=== PATIENT | female | born 1980 | race Two or more races ===

== ENCOUNTER 2019-09-01 21:43 | Inpatient (IN) | payer MEDICAID ==
[~2019-09-01] VITALS: Ht 170.2 cm; Wt 167.2 kg
--- NOTE | 2019-09-01 21:45 | NUR ---
DR DALLAS AND DR WELLS AND DR BOWLING ALL AT BS UPON PT ARRIVAL. NOW SURGICAL TEAM HERE
[2019-09-01] MEDS ORDERED: morphine 2 MG/ML inj. syringe IV PRN ×2 (21:50)
[2019-09-01] MEDS ORDERED: ondansetron/PF 4mg/2ml inj IV PRN (21:50)
[2019-09-01] MEDS ORDERED: NO HOME MEDS (21:54)
[2019-09-01] MEDS ORDERED: propofol inj 20 ML IV ONE (21:59)
--- NOTE | 2019-09-01 22:00 | NUR ---
SURGERY HAS JUST LEFT WITH THE PATIENT
[2019-09-01] MEDS ORDERED: midazolam 2 mg/2 ml injection ONE (22:09)
[2019-09-01] MEDS ORDERED: fentaNYL/PF 50MCG/1 ML 2ML syringe ONE ×2 (22:09→23:22)
[2019-09-01] MEDS ORDERED: ceFAZolin 1000mg inj ONE ×3 (22:45)
[2019-09-01] MEDS ORDERED: rocuronium 10mg/ml inj IV ONE (23:18)
[2019-09-01] MEDS ORDERED: succinylcholine 20mg/ml inj IV ONE (23:18)
[2019-09-01] MEDS ORDERED: dexamethasone sod phosphate 4mg/ml inj. ONE (23:19)
[2019-09-01 23:45] VITALS: BP_SYST 120; BP_SYST 129; BP_DIAS 72; BP_DIAS 87
--- NOTE | 2019-09-01 23:45 | NUR ---
Received from OR via , accompanied by Anesthesiologist DR BUCK and report given by Anesthesiolgist. PT ARRIVED IN ICU INTUBATED,22 TEETH, NOT MOVING EXT, SCD'S, PIV 20G RIGHT FA WITH LR 100ML/HR, SKIN WARM, PEDAL PULSES +2, NO C/O PAIN, JONES TO GRAVITY WITH TEA COLORED CLOUDY URINE, LEFT NECK OPEN WITH KERLIX PACKING AND ABD PAD CD.
[2019-09-01 23:55] VITALS: BP 118/67
[2019-09-02] VITALS (25 sets, daily range): BP systolic 92–139; BP diastolic 57–77
[2019-09-02] MEDS ORDERED: piperacillin/tazo 3.375gm/50ml 50 ML IV SCH
--- NOTE | 2019-09-02 00:08 | NUR ---
Report called to receiving nurse. Transferred via [facility]ED [facility]ongings . Special Issues communicated to receiving nurse YVONNE HANDLEY. PT IS MEETS PACU DISCHARGE CRITERIA, PT INTUBATED, RESTING QUIETLY AND APPEARS COMFORTABLE, VSS, JONES TO GRAVITY, SCD'S, PIV RIGHT PATENT, ART LINE RIGHT, DRESSING TO LEFT NECK CD.
[2019-09-02 00:21] LABS: ABG BASE EXCESS -4.6 mmol/L (-2.0-3.0); ABG HCO3 21.5 mmol/L (22.0-26.0); ABG OXYGEN SATURATION 97.3 % (95-98); ABG PCO2 (T) 43.6 mmHg (35.0-45.0); ABG PH (T) 7.312 (7.350-7.450); ABG PO2 (T) 98.7 mmHg (83-108); FMetHb 0.3 % (0.3-1.12); MINUTE VOLUME 9 L/min; PATIENT TEMPERATURE 37.2; PEEP 5 cm H2O; RESPIRATORY RATE 16 b/min; RESPIRATORY RATE (OBSERVED) 16 b/min; TIDAL VOLUME 500 mL; TOTAL HEMOGLOBIN 16.1 G/dl (12.0-16.0)
[2019-09-02] MEDS: midazolam 100mg in NS 100ml 100 ML IV PRN ×2 (00:21→18:12)
[2019-09-02] MEDS: normal saline 1000ml 1,000 ML IV SCH ×3 (00:56→20:07)
[2019-09-02] MEDS: piperacillin/tazo 4.5gm/100ml 100 ML IV SCH ×4 (00:58→23:09)
[2019-09-02] MEDS: CLINDAMYCIN/D5W 900mg/50ml 50 ML IV SCH ×4 (00:58→23:09)
[2019-09-02] MEDS: FENTANYL-0.9 % NACL/PF 100 ML IV PRN ×2 (01:08→13:12)
[2019-09-02 01:10] LABS: BASOPHILS # (AUTO) 0.2 X10'3 (0-0.2); BASOPHILS % (AUTO) 0.5 % (0-1); EOSINOPHILS % (AUTO) 0.1 % (0-6); HEMATOCRIT 46.6 % (35.0-45.0); HEMOGLOBIN 15.4 g/dl (12.0-16.0); LYMPHOCYTES % (AUTO) 6.7 % (21-51); MEAN CORPUSCULAR HEMOGLOBIN 30.8 PG (27.0-31.0); MEAN CORPUSCULAR VOLUME 93.2 FL (78-98); MEAN PLATELET VOLUME 9.6 FL (7.4-10.4); MONOCYTES # (AUTO) 1.2 X10'3 (0-0.9); MONOCYTES % (AUTO) 3.9 % (2-12); NEUTROPHILS # (AUTO) 26.8 X10'3 (1.8-7.7); NEUTROPHILS % (AUTO) 88.8 % (42-75); PLATELET COUNT 305 X10'3 (140-440); RED CELL DISTRIBUTION WIDTH 13.5 % (11.5-14.5)
[2019-09-02 01:16] LABS: WHITE BLOOD COUNT 30.2 X10'3 (4.5-11.0)
[2019-09-02 01:25] LABS: PARTIAL THROMBOPLASTIN TIME 29 SECONDS (22-32)
[2019-09-02 01:26] LABS: ALANINE AMINOTRANSFERASE 29 U/L (12-78); ALBUMIN 2.2 G/DL (3.4-5.0); ALBUMIN/GLOBULIN RATIO 0.5 (1.1-1.5); ALKALINE PHOSPHATASE 96 IU/L (46-116); ANION GAP 9 (8-16); ASPARTATE AMINO TRANSFERASE 42 U/L (10-37); BILIRUBIN,TOTAL 0.8 MG/DL (0.1-1.0); BLOOD UREA NITROGEN 9 MG/DL (7-18); BUN/CREATININE RATIO 8.7 (6.6-38.0); CALCIUM 7.5 MG/DL (8.5-10.1); CHLORIDE 103 MMOL/L (99-107); CREATININE 1.03 MG/DL (0.40-0.90); GLUCOSE 152 MG/DL (70-104); MAGNESIUM 1.7 MG/DL (1.5-2.4); PHOSPHORUS 3.4 MG/DL (2.3-4.5); POTASSIUM 4.4 MMOL/L (3.5-5.1); SODIUM 133 MMOL/L (135-145); TOTAL PROTEIN 6.4 G/DL (6.4-8.2); eGFR 60 ML/MIN
[2019-09-02 01:45] LABS: PLATELET ESTIMATE NORMAL; TOTAL CELLS COUNTED 100
[2019-09-02 03:23] LABS: CLARITY,URINE CLEAR (Clear); COLOR,URINE YELLOW (Yellow); GLUCOSE, URINE 100 mg/dl (Neg); KETONES,URINE TRACE mg/dl (Neg); LEUKOCYTE ESTERASE ,URINE NEGATIVE (Neg); NITRITES, URINE NEGATIVE (Neg); OCCULT BLOOD,URINE SMALL (Neg); PROTEIN,URINE TRACE mg/dl (Neg)
[2019-09-02 03:29] LABS: UA COLLECTION TYPE NON-SPECIFIED
[2019-09-02 03:30] LABS: BACTERIA,URINE FEW /HPF (Neg); RBC,URINE 0-2 /HPF (0-2); SQUAMOUS EPITHELIAL CELL,UR FEW /LPF (FEW); WBC,URINE 0-4 /HPF (0-4)
[2019-09-02 03:55] LABS: ABG BASE EXCESS -3.9 mmol/L (-2.0-3.0); ABG HCO3 21.2 mmol/L (22.0-26.0); ABG OXYGEN SATURATION 95.7 % (95-98); ABG PCO2 (T) 38.8 mmHg (35.0-45.0); ABG PH (T) 7.355 (7.350-7.450); ABG PO2 (T) 75.6 mmHg (83-108); FCOHb 1.5 % (0.5-1.5); FMetHb 0.3 % (0.3-1.12); MINUTE VOLUME 10 L/min; PATIENT TEMPERATURE 36.8; PEEP 5 cm H2O; RESPIRATORY RATE 18 b/min; RESPIRATORY RATE (OBSERVED) 18 b/min; TIDAL VOLUME 500 mL
--- NOTE | 2019-09-02 06:31 | NUR ---
Patient in room ICU 2045. I have received report from Khalida and had the opportunity to ask questions and assume patient care.
[2019-09-02 08:23] LABS: ALANINE AMINOTRANSFERASE 31 U/L (12-78); ALBUMIN/GLOBULIN RATIO 0.5 (1.1-1.5); ALKALINE PHOSPHATASE 98 IU/L (46-116); ANION GAP 9 (8-16); ASPARTATE AMINO TRANSFERASE 59 U/L (10-37); BASOPHILS # (AUTO) 0.1 X10'3 (0-0.2); BASOPHILS % (AUTO) 0.2 % (0-1); BILIRUBIN,TOTAL 0.8 MG/DL (0.1-1.0); BLOOD UREA NITROGEN 10 MG/DL (7-18); BUN/CREATININE RATIO 10.5 (6.6-38.0); CALCIUM 7.5 MG/DL (8.5-10.1); CHLORIDE 104 MMOL/L (99-107); CREATININE 0.95 MG/DL (0.40-0.90); EOSINOPHILS % (AUTO) 0 % (0-6); GLUCOSE 186 MG/DL (70-104); HEMATOCRIT 46.7 % (35.0-45.0); HEMOGLOBIN 15.4 g/dl (12.0-16.0); LYMPHOCYTES # (AUTO) 1.4 X10'3 (1.1-4.8); LYMPHOCYTES % (AUTO) 5.1 % (21-51); MEAN CORPUSCULAR HEMOGLOBIN 30.7 PG (27.0-31.0); MEAN CORPUSCULAR HGB CONC 32.9 g/dL (33.0-36.5); MEAN CORPUSCULAR VOLUME 93.2 FL (78-98); MEAN PLATELET VOLUME 9.7 FL (7.4-10.4); MONOCYTES # (AUTO) 0.8 X10'3 (0-0.9); MONOCYTES % (AUTO) 2.9 % (2-12); NEUTROPHILS # (AUTO) 25.9 X10'3 (1.8-7.7); NEUTROPHILS % (AUTO) 91.8 % (42-75); PLATELET COUNT 334 X10'3 (140-440); POTASSIUM 4.2 MMOL/L (3.5-5.1); RED CELL DISTRIBUTION WIDTH 13.6 % (11.5-14.5); SODIUM 135 MMOL/L (135-145); TOTAL CARBON DIOXIDE 22.1 MMOL/L (24-32); TOTAL PROTEIN 6.3 G/DL (6.4-8.2); eGFR 66 ML/MIN
[2019-09-02 08:25] LABS: WHITE BLOOD COUNT 28.2 X10'3 (4.5-11.0)
--- NOTE | 2019-09-02 09:03 | NUR ---
0700- Patient wakes easily, squeezes hands on command, denies pain, easily stimulated cough. Patient c/o being hot. decreased thermostat and placed a fan on patient. 0845- Dr Vega rounded, took down dressing, repacked with 4in kerlex. Patient in pain with dressing change. Uncontrolled cough. Increased versed to 4mg/hour. Orders given for 1/4 strength dakins solution kerlex packing to left neck BID. Reviewed micro results with .
[2019-09-02] MEDS: heparin, porcine 5000 units/ml vial SQ SCH ×2 (09:18→20:08)
[2019-09-02 09:52] LABS: LARGE PLATELETS FEW; PLATELET ESTIMATE NORMAL; POLYCHROMASIA FEW; TOTAL CELLS COUNTED 100
--- NOTE | 2019-09-02 11:07 | NUR ---
Initial: Pt intubated admit w/ L neck abscess s/p tattoo 2 weeks prior. S/p I&D w/ necrotizing deep tissue found and likely to return to OR for further debridement per MD note. Jan 11 w/ L neck surgical wound. NPO w/ OG in place. TF recs below in case prolonged intubation given significant wounds and healing needs. Would benefit from MVI once PO for wound healing. Airway swelling present per MD note. No BM yet this admit. Will continue to monitor. Rec: 1. IF OGTF; Vital High Protein at 105ml/hr goal 2. IF TF; addition water flush per MD w/ Na 135 currently 3. IF TF; PALB Q /; daily wts 4. routine bowel care 5. MVI for wounds once PO 6. upon extubation; advance diet per MD to heart healthy 7. high protein ed once stable s/p extubation Addendum: 09/02/19 at [address] Amended: Links added.
[2019-09-02 13:58] LABS: BETA HCG,QUANTITATIVE < 1.0 mIU/ml
[2019-09-02] MEDS: lactobacillus rhamnosus 10,000 MMU CELLS/CAPSULE PO SCH (20:08)
[2019-09-02] MEDS: Dakins solution (1/4 strength) 473ml solution TP SCH (20:15)
[2019-09-02] MEDS ORDERED: VANCOMYCIN LEVEL IV ONE (20:30)
--- NOTE | 2019-09-02 22:29 | NUR ---
Spoke with nursing statement clerks supervisor, approval for a [facility] bed obtained,
[2019-09-03] VITALS (27 sets, daily range): BP systolic 103–140; BP diastolic 55–83
[2019-09-03] MEDS: FENTANYL-0.9 % NACL/PF 100 ML IV PRN ×3 (00:18→18:54)
[2019-09-03] MEDS: mineral oil/petrolatum ophthal oint EACHEYE SCH ×4 (02:30→20:37)
[2019-09-03 02:36] LABS: ABG BASE EXCESS -2.4 mmol/L (-2.0-3.0); ABG HCO3 21.6 mmol/L (22.0-26.0); ABG OXYGEN SATURATION 97.7 % (95-98); ABG PCO2 (T) 35.2 mmHg (35.0-45.0); ABG PH (T) 7.407 (7.350-7.450); ABG PO2 (T) 93.7 mmHg (83-108); FCOHb 0.8 % (0.5-1.5); FMetHb 0.1 % (0.3-1.12); FO2Hb 96.8 % (94-100); MINUTE VOLUME 10 L/min; PATIENT TEMPERATURE 37.1; PEEP 5 cm H2O; RESPIRATORY RATE 18 b/min; RESPIRATORY RATE (OBSERVED) 18 b/min; TIDAL VOLUME 500 mL; TOTAL HEMOGLOBIN 14.9 G/dl (12.0-16.0)
[2019-09-03 03:10] LABS: BASOPHILS # (AUTO) 0.1 X10'3 (0-0.2); BASOPHILS % (AUTO) 0.3 % (0-1); EOSINOPHILS % (AUTO) 0 % (0-6); HEMATOCRIT 43.3 % (35.0-45.0); HEMOGLOBIN 14.3 g/dl (12.0-16.0); LYMPHOCYTES # (AUTO) 2.4 X10'3 (1.1-4.8); MEAN CORPUSCULAR HEMOGLOBIN 30.7 PG (27.0-31.0); MEAN CORPUSCULAR HGB CONC 33.1 g/dL (33.0-36.5); MEAN CORPUSCULAR VOLUME 92.7 FL (78-98); MONOCYTES # (AUTO) 1.3 X10'3 (0-0.9); MONOCYTES % (AUTO) 5.7 % (2-12); NEUTROPHILS # (AUTO) 18.3 X10'3 (1.8-7.7); PLATELET COUNT 353 X10'3 (140-440); RED BLOOD COUNT 4.67 X10'6 (4.20-5.60); RED CELL DISTRIBUTION WIDTH 13.4 % (11.5-14.5)
[2019-09-03 03:29] LABS: PLATELET ESTIMATE NORMAL; TOTAL CELLS COUNTED 100
[2019-09-03 03:30] LABS: ALANINE AMINOTRANSFERASE 30 U/L (12-78); ALBUMIN 1.8 G/DL (3.4-5.0); ALBUMIN/GLOBULIN RATIO 0.4 (1.1-1.5); ALKALINE PHOSPHATASE 78 IU/L (46-116); ANION GAP 9 (8-16); ASPARTATE AMINO TRANSFERASE 63 U/L (10-37); BILIRUBIN,TOTAL 0.4 MG/DL (0.1-1.0); BLOOD UREA NITROGEN 13 MG/DL (7-18); BUN/CREATININE RATIO 15.1 (6.6-38.0); CALCIUM 7.8 MG/DL (8.5-10.1); CHLORIDE 106 MMOL/L (99-107); CREATININE 0.86 MG/DL (0.40-0.90); GLUCOSE 126 MG/DL (70-104); LARGE PLATELETS FEW; POLYCHROMASIA FEW; POTASSIUM 3.9 MMOL/L (3.5-5.1); SODIUM 139 MMOL/L (135-145); TOTAL CARBON DIOXIDE 23.7 MMOL/L (24-32); TOTAL PROTEIN 5.9 G/DL (6.4-8.2); eGFR 74 ML/MIN
[2019-09-03] MEDS: midazolam 100mg in NS 100ml 100 ML IV PRN ×2 (03:35→18:16)
[2019-09-03] MEDS ORDERED: midazolam 2 mg/2 ml injection IV PRN (04:25)
[2019-09-03] MEDS: normal saline 1000ml 1,000 ML IV SCH ×3 (05:07→23:37)
[2019-09-03] MEDS: piperacillin/tazo 4.5gm/100ml 100 ML IV SCH ×3 (08:35→23:38)
[2019-09-03] MEDS: heparin, porcine 5000 units/ml vial SQ SCH ×2 (08:35→20:40)
[2019-09-03] MEDS: lactobacillus rhamnosus 10,000 MMU CELLS/CAPSULE PO SCH ×2 (08:36→20:40)
[2019-09-03] MEDS: Dakins solution (1/4 strength) 473ml solution TP SCH ×2 (08:36→20:45)
[2019-09-03] MEDS: CLINDAMYCIN/D5W 900mg/50ml 50 ML IV SCH ×3 (08:36→23:37)
--- NOTE | 2019-09-03 14:07 | NUR ---
PRESSURE ULCER EDUCATION: DEFINITION: A pressure ulcer is an area of skin that breaks down when you stay in one position too long. The constant pressure against the skin reduces the blood flow to that area and the affected tissue dies. CAUSES: "Being bedridden or in a wheelchair "Fragile skin "Having a chronic condition, such as diabetes or vascular disease "Inability to move certain parts of your body without assistance "Older age "Incontinence of urine or stool SYMPTOMS: "A reddened area that DOES NOT turn white when pressed on - this can be the beginning of a pressure ulcer "A blister, deep sore or a crater - these can be advanced pressure ulcers FIRST AID: "Relieve the pressure on this area "Keep the area clean and dry "Call your primary doctor if you see any of the above symptoms "DO NOT massage the area "DO NOT use a donut shaped or ring shaped pillow- these actually interfere with the blood flow and cause complications PREVENTION: "Check for pressure ulcers everyday "Change position at least every two hours to relieve pressure "Use items that help relieve pressure- pillows, sheepskin, foam padding, and powders. "Keep skin clean and dry "Eat healthy well balanced meals "Exercise daily IF YOU SEE ANY OF THESE SYMPTOMS WHILE IN THE HOSPITAL - TELL YOUR NURSE IMMEDIATELY. IF YOU SEE ANY OF THESE SYMPTOMS WHILE AT HOME OR HAVE ANY QUESTIONS OR CONCERNS ABOUT PRESSURE ULCERS - CALL YOUR PRIMARY DOCTOR IMMEDIATELY. Addendum: 09/03/19 at 1407 by Kenna Kam RN Amended: Links added.
--- NOTE | 2019-09-03 15:30 | NUR ---
Tube feeding consult, recommendations for Vital High Protein below. Initial: Pt intubated admit w/ L neck abscess s/p tattoo 2 weeks prior. S/p I&D w/ necrotizing deep tissue found and likely to return to OR for further debridement per MD note. Jan 11 w/ L neck surgical wound. NPO w/ OG in place. TF recs below in case prolonged intubation given significant wounds and healing needs. Would benefit from MVI once PO for wound healing. Airway swelling present per MD note. No BM yet this admit. Will continue to monitor. Rec: 1. Continuous tube feeding via OG tube with Vital High Protein at 105ml/hr goal will provide: 2520 cals, 2520 ml volume, 221 g protein, and 2117 ml water. Start at 20 ml/hr and advance as tolerated by 30 ml to goal rate. 2. Additional water flush 200 ml q 4 hours 3. PALB Q /; daily wts 4. routine bowel care 5. MVI for wounds once PO 6. when extubated advance diet as medically indicated to heart healthy 7. high protein ed once stable s/p extubation Addendum: 09/03/19 at [address] Amended: Links added.
[2019-09-03] MEDS: ipratropium/albuterol 3ml nebule NEB PRN (18:46)
[2019-09-03 20:35] LABS: ABG BASE EXCESS -2.7 mmol/L (-2.0-3.0); ABG HCO3 23.3 mmol/L (22.0-26.0); ABG OXYGEN SATURATION 95.1 % (95-98); ABG PCO2 (T) 45.3 mmHg (35.0-45.0); ABG PH (T) 7.331 (7.350-7.450); ABG PO2 (T) 75.6 mmHg (83-108); ALLEN'S TEST Positive; FCOHb 0.6 % (0.5-1.5); FLOW 40 L/min; FMetHb 0.1 % (0.3-1.12); FO2Hb 94.4 % (94-100); MINUTE VOLUME 10 L/min; PATIENT TEMPERATURE 37.3; PEEP 5 cm H2O; RESPIRATORY RATE 12 b/min; RESPIRATORY RATE (OBSERVED) 15 b/min; TIDAL VOLUME 400 mL; TOTAL HEMOGLOBIN 15.5 G/dl (12.0-16.0)
[2019-09-03] MEDS: famotidine/PF 10 mg/ml inj IV SCH (20:40)
[2019-09-03] MEDS: nystatin 15 GM powder TP SCH (20:40)
[2019-09-04] VITALS (24 sets, daily range): BP systolic 110–149; BP diastolic 62–99
[2019-09-04] MEDS: mineral oil/petrolatum ophthal oint EACHEYE SCH ×4 (02:00→20:59)
[2019-09-04] MEDS: FENTANYL-0.9 % NACL/PF 100 ML IV PRN ×3 (03:50→23:21)
[2019-09-04] MEDS: ipratropium/albuterol 3ml nebule NEB PRN (04:58)
[2019-09-04 05:28] LABS: BASOPHILS # (AUTO) 0.1 X10'3 (0-0.2); BASOPHILS % (AUTO) 0.5 % (0-1); EOSINOPHILS # (AUTO) 0.1 X10'3 (0-0.9); EOSINOPHILS % (AUTO) 0.5 % (0-6); HEMOGLOBIN 14.8 g/dl (12.0-16.0); LYMPHOCYTES # (AUTO) 2.5 X10'3 (1.1-4.8); LYMPHOCYTES % (AUTO) 19.7 % (21-51); MEAN CORPUSCULAR HEMOGLOBIN 31.1 PG (27.0-31.0); MEAN CORPUSCULAR VOLUME 94.3 FL (78-98); MEAN PLATELET VOLUME 9.8 FL (7.4-10.4); MONOCYTES % (AUTO) 7.8 % (2-12); NEUTROPHILS # (AUTO) 9.1 X10'3 (1.8-7.7); NEUTROPHILS % (AUTO) 71.5 % (42-75); PLATELET COUNT 350 X10'3 (140-440); RED BLOOD COUNT 4.77 X10'6 (4.20-5.60); RED CELL DISTRIBUTION WIDTH 13.9 % (11.5-14.5); WHITE BLOOD COUNT 12.7 X10'3 (4.5-11.0)
[2019-09-04 05:46] LABS: ABG BASE EXCESS -3.5 mmol/L (-2.0-3.0); ABG HCO3 23.3 mmol/L (22.0-26.0); ABG OXYGEN SATURATION 95.7 % (95-98); ABG PCO2 (T) 48.5 mmHg (35.0-45.0); ABG PO2 (T) 82.5 mmHg (83-108); FCOHb 0.4 % (0.5-1.5); FMetHb 0.1 % (0.3-1.12); FO2Hb 95.2 % (94-100); MINUTE VOLUME 7 L/min; PATIENT TEMPERATURE 37.1; PEEP 5 cm H2O; RESPIRATORY RATE 14 b/min; RESPIRATORY RATE (OBSERVED) 14 b/min; TIDAL VOLUME 500 mL; TOTAL HEMOGLOBIN 15.6 G/dl (12.0-16.0)
[2019-09-04 05:49] LABS: ALANINE AMINOTRANSFERASE 42 U/L (12-78); ALBUMIN 1.7 G/DL (3.4-5.0); ALBUMIN/GLOBULIN RATIO 0.4 (1.1-1.5); ALKALINE PHOSPHATASE 74 IU/L (46-116); ANION GAP 9 (8-16); ASPARTATE AMINO TRANSFERASE 128 U/L (10-37); BILIRUBIN,TOTAL 0.3 MG/DL (0.1-1.0); BLOOD UREA NITROGEN 16 MG/DL (7-18); BUN/CREATININE RATIO 20.8 (6.6-38.0); CALCIUM 7.5 MG/DL (8.5-10.1); CHLORIDE 107 MMOL/L (99-107); CREATININE 0.77 MG/DL (0.40-0.90); GLUCOSE 147 MG/DL (70-104); PREALBUMIN 13.9 MG/DL (19-36); SODIUM 139 MMOL/L (135-145); TOTAL CARBON DIOXIDE 22.8 MMOL/L (24-32); TOTAL PROTEIN 5.8 G/DL (6.4-8.2); eGFR 84 ML/MIN
[2019-09-04] MEDS: midazolam 100mg in NS 100ml 100 ML IV PRN ×2 (06:24→18:53)
[2019-09-04] MEDS: lactobacillus rhamnosus 10,000 MMU CELLS/CAPSULE PO SCH ×2 (08:41→20:58)
[2019-09-04] MEDS: famotidine/PF 10 mg/ml inj IV SCH ×2 (08:41→20:58)
[2019-09-04] MEDS: CLINDAMYCIN/D5W 900mg/50ml 50 ML IV SCH ×2 (08:41→16:58)
[2019-09-04] MEDS: piperacillin/tazo 4.5gm/100ml 100 ML IV SCH ×2 (08:41→16:58)
[2019-09-04] MEDS: heparin, porcine 5000 units/ml vial SQ SCH ×2 (08:42→20:58)
[2019-09-04] MEDS: Dakins solution (1/4 strength) 473ml solution TP SCH ×2 (08:42→20:59)
[2019-09-04] MEDS: nystatin 15 GM powder TP SCH ×2 (08:42→20:59)
--- NOTE | 2019-09-04 09:00 | NUR ---
[facility] LINE: LOT# [id number] REF# [id number] EXP: 04/21/2020
[2019-09-04] MEDS: normal saline 1000ml 1,000 ML IV SCH ×2 (14:06→20:59)
[2019-09-04] MEDS: propofol 1000mg/100ml bottle 100 ML IV SCH (21:41)
[2019-09-05] VITALS (27 sets, daily range): BP systolic 98–151; BP diastolic 51–88
[2019-09-05] MEDS: propofol 1000mg/100ml bottle 100 ML IV SCH ×10 (00:39→23:40)
[2019-09-05] MEDS: piperacillin/tazo 4.5gm/100ml 100 ML IV SCH ×3 (00:39→15:05)
[2019-09-05] MEDS: CLINDAMYCIN/D5W 900mg/50ml 50 ML IV SCH ×3 (00:39→15:05)
[2019-09-05] MEDS: mineral oil/petrolatum ophthal oint EACHEYE SCH ×4 (01:03→20:59)
[2019-09-05] MEDS: midazolam 100mg in NS 100ml 100 ML IV PRN ×4 (02:54→22:04)
[2019-09-05 03:16] LABS: BASOPHILS # (AUTO) 0.1 X10'3 (0-0.2); BASOPHILS % (AUTO) 0.8 % (0-1); EOSINOPHILS # (AUTO) 0.1 X10'3 (0-0.9); EOSINOPHILS % (AUTO) 0.5 % (0-6); HEMOGLOBIN 14.9 g/dl (12.0-16.0); LYMPHOCYTES # (AUTO) 2.8 X10'3 (1.1-4.8); LYMPHOCYTES % (AUTO) 16.1 % (21-51); MEAN CORPUSCULAR HEMOGLOBIN 30.7 PG (27.0-31.0); MEAN CORPUSCULAR HGB CONC 32.4 g/dL (33.0-36.5); MEAN CORPUSCULAR VOLUME 94.9 FL (78-98); MEAN PLATELET VOLUME 9.6 FL (7.4-10.4); MONOCYTES # (AUTO) 1.4 X10'3 (0-0.9); MONOCYTES % (AUTO) 8.2 % (2-12); NEUTROPHILS # (AUTO) 12.8 X10'3 (1.8-7.7); NEUTROPHILS % (AUTO) 74.4 % (42-75); PLATELET COUNT 342 X10'3 (140-440); RED BLOOD COUNT 4.84 X10'6 (4.20-5.60); RED CELL DISTRIBUTION WIDTH 14.1 % (11.5-14.5); WHITE BLOOD COUNT 17.1 X10'3 (4.5-11.0)
[2019-09-05 03:41] LABS: ALANINE AMINOTRANSFERASE 42 U/L (12-78); ALBUMIN 1.6 G/DL (3.4-5.0); ALBUMIN/GLOBULIN RATIO 0.4 (1.1-1.5); ALKALINE PHOSPHATASE 86 IU/L (46-116); ANION GAP 9 (8-16); ASPARTATE AMINO TRANSFERASE 101 U/L (10-37); BILIRUBIN,TOTAL 0.3 MG/DL (0.1-1.0); BLOOD UREA NITROGEN 19 MG/DL (7-18); CALCIUM 7.7 MG/DL (8.5-10.1); CHLORIDE 107 MMOL/L (99-107); CREATININE 0.95 MG/DL (0.40-0.90); GLUCOSE 151 MG/DL (70-104); POTASSIUM 4.4 MMOL/L (3.5-5.1); SODIUM 139 MMOL/L (135-145); TOTAL CARBON DIOXIDE 23.1 MMOL/L (24-32); TOTAL PROTEIN 5.7 G/DL (6.4-8.2); TRIGLYCERIDES 172 MG/DL (20-135); eGFR 66 ML/MIN
[2019-09-05 03:51] LABS: ABG BASE EXCESS -5.1 mmol/L (-2.0-3.0); ABG HCO3 21.9 mmol/L (22.0-26.0); ABG OXYGEN SATURATION 97.7 % (95-98); ABG PCO2 (T) 47.9 mmHg (35.0-45.0); ABG PH (T) 7.278 (7.350-7.450); ALLEN'S TEST Positive; FMetHb 0.3 % (0.3-1.12); FO2Hb 96.4 % (94-100); MINUTE VOLUME 8 L/min; PATIENT TEMPERATURE 36.9; PEEP 5 cm H2O; RESPIRATORY RATE 14 b/min; RESPIRATORY RATE (OBSERVED) 15 b/min; TOTAL HEMOGLOBIN 14.8 G/dl (12.0-16.0)
[2019-09-05 04:45] LABS: TOTAL CELLS COUNTED 100
[2019-09-05 04:46] LABS: PLATELET ESTIMATE NORMAL
[2019-09-05] MEDS: normal saline 1000ml 1,000 ML IV SCH (05:20)
[2019-09-05] MEDS: FENTANYL-0.9 % NACL/PF 100 ML IV PRN ×4 (05:23→22:03)
--- NOTE | 2019-09-05 06:30 | NUR ---
Received report from ENDER Rahman
[2019-09-05] MEDS: heparin, porcine 5000 units/ml vial SQ SCH ×2 (07:16→20:00)
[2019-09-05] MEDS: famotidine/PF 10 mg/ml inj IV SCH ×2 (07:54→20:59)
[2019-09-05] MEDS: nystatin 15 GM powder TP SCH ×2 (07:54→20:59)
[2019-09-05] MEDS: Dakins solution (1/4 strength) 473ml solution TP SCH ×2 (07:54→20:00)
[2019-09-05] MEDS: lactobacillus rhamnosus 10,000 MMU CELLS/CAPSULE PO SCH ×2 (07:55→20:00)
[2019-09-05] MEDS ORDERED: furosemide 40mg/4ml inj IV ONE (09:45)
--- NOTE | 2019-09-05 15:49 | NUR ---
Reassessment: Pt intubated and sedated, tube feeding off today d/t returning to OR today for additional debridement. Otherwise was tolerating tube feedings at goal rate with low GRV. She is s/p I&D with necrotizing deep tissue found in neck and subcutaneous structures per MD note. Presented with left neck abscess after tattoo 2 weeks prior. Jan 11 with left neck surgical wound. Will continue to monitor. Rec: 1. When patient returns from OR resume continuous tube feeding via OG tube with Vital High Protein at 105ml/hr goal will provide: 2520 cals, 2520 ml volume, 221 g protein, and 2117 ml water. 2. Additional water flush 200 ml q 4 hours 3. prealbumin q /; daily wts 4. routine bowel care 5. May benefit from multivitamin to support wound healing 6. when extubated advance diet as medically indicated to heart healthy 7. high protein ed once stable s/p extubation Addendum: 09/05/19 at [address] Amended: Links added.
[2019-09-05] MEDS ORDERED: propofol 1000mg/100ml bottle 100 ML IV ONE (17:46)
--- NOTE | 2019-09-05 18:34 | NUR ---
Report given to ENDER Barry
--- NOTE | 2019-09-05 18:34 | NUR ---
Patient in room ICU 2045. I have received report from Erika HANDLEY and had the opportunity to ask questions and assume patient care.
--- NOTE | 2019-09-05 20:56 | NUR ---
Pt post op. Pt's PM PO meds and SQ Heparin held
[2019-09-05] MEDS: furosemide 40mg/4ml inj IV SCH (20:59)
[2019-09-06] VITALS (27 sets, daily range): BP systolic 73–160; BP diastolic 39–85
[2019-09-06] MEDS: CLINDAMYCIN/D5W 900mg/50ml 50 ML IV SCH ×3 (00:56→15:45)
[2019-09-06] MEDS: piperacillin/tazo 4.5gm/100ml 100 ML IV SCH ×3 (01:45→16:02)
[2019-09-06] MEDS: propofol 1000mg/100ml bottle 100 ML IV SCH ×3 (01:48→08:35)
[2019-09-06] MEDS: mineral oil/petrolatum ophthal oint EACHEYE SCH ×4 (02:00→20:37)
[2019-09-06 03:52] LABS: BASOPHILS # (AUTO) 0.1 X10'3 (0-0.2); BASOPHILS % (AUTO) 0.5 % (0-1); EOSINOPHILS # (AUTO) 0.2 X10'3 (0-0.9); HEMATOCRIT 47.5 % (35.0-45.0); HEMOGLOBIN 15.6 g/dl (12.0-16.0); LYMPHOCYTES # (AUTO) 2.4 X10'3 (1.1-4.8); LYMPHOCYTES % (AUTO) 12.9 % (21-51); MEAN CORPUSCULAR HEMOGLOBIN 30.7 PG (27.0-31.0); MEAN CORPUSCULAR HGB CONC 32.8 g/dL (33.0-36.5); MEAN CORPUSCULAR VOLUME 93.4 FL (78-98); MEAN PLATELET VOLUME 9.6 FL (7.4-10.4); MONOCYTES # (AUTO) 1.3 X10'3 (0-0.9); NEUTROPHILS # (AUTO) 14.3 X10'3 (1.8-7.7); NEUTROPHILS % (AUTO) 78.6 % (42-75); PLATELET COUNT 411 X10'3 (140-440); RED BLOOD COUNT 5.09 X10'6 (4.20-5.60); WHITE BLOOD COUNT 18.2 X10'3 (4.5-11.0)
[2019-09-06 04:14] LABS: ALANINE AMINOTRANSFERASE 49 U/L (12-78); ALBUMIN 1.6 G/DL (3.4-5.0); ALBUMIN/GLOBULIN RATIO 0.4 (1.1-1.5); ALKALINE PHOSPHATASE 77 IU/L (46-116); ANION GAP 4 (8-16); ASPARTATE AMINO TRANSFERASE 144 U/L (10-37); BILIRUBIN,TOTAL 0.3 MG/DL (0.1-1.0); BLOOD UREA NITROGEN 16 MG/DL (7-18); CALCIUM 8.2 MG/DL (8.5-10.1); CHLORIDE 107 MMOL/L (99-107); GLUCOSE 144 MG/DL (70-104); POTASSIUM 4.5 MMOL/L (3.5-5.1); SODIUM 140 MMOL/L (135-145); TOTAL CARBON DIOXIDE 28.7 MMOL/L (24-32); TOTAL PROTEIN 5.8 G/DL (6.4-8.2); eGFR 80 ML/MIN
[2019-09-06] MEDS: FENTANYL-0.9 % NACL/PF 100 ML IV PRN ×4 (04:33→22:02)
[2019-09-06 04:35] LABS: ABG BASE EXCESS -2.2 mmol/L (-2.0-3.0); ABG HCO3 22.9 mmol/L (22.0-26.0); ABG OXYGEN SATURATION 96.4 % (95-98); ABG PH (T) 7.366 (7.350-7.450); ABG PO2 (T) 82.9 mmHg (83-108); ALLEN'S TEST Positive; FCOHb 0.4 % (0.5-1.5); MINUTE VOLUME 8 L/min; PATIENT TEMPERATURE 37.4; PEEP 5 cm H2O; RESPIRATORY RATE 16 b/min; RESPIRATORY RATE (OBSERVED) 18 b/min; TOTAL HEMOGLOBIN 16.1 G/dl (12.0-16.0)
--- NOTE | 2019-09-06 06:30 | NUR ---
Problems reprioritized. Patient report given, questions answered & plan of care reviewed with Ed HANDLEY.
--- NOTE | 2019-09-06 06:30 | NUR ---
Patient in room ICU 2045. I have received report from ENDER Barry and had the opportunity to ask questions and assume patient care.
[2019-09-06] MEDS: Dakins solution (1/4 strength) 473ml solution TP SCH ×2 (08:00→20:36)
[2019-09-06] MEDS: nystatin 15 GM powder TP SCH ×2 (08:32→20:36)
[2019-09-06] MEDS: lactobacillus rhamnosus 10,000 MMU CELLS/CAPSULE PO SCH ×2 (08:35→20:37)
[2019-09-06] MEDS: furosemide 40mg/4ml inj IV SCH ×2 (08:35→20:37)
[2019-09-06] MEDS: famotidine/PF 10 mg/ml inj IV SCH ×2 (08:35→20:37)
[2019-09-06] MEDS: heparin, porcine 5000 units/ml vial SQ SCH ×2 (08:36→20:37)
[2019-09-06 11:17] LABS: HEMOGLOBIN A1C 6.1 % (4.5-6.2)
[2019-09-06] MEDS: dexmedetomidin/NS 400mcg/100ml 100 ML IV SCH ×4 (11:56→22:03)
[2019-09-06] MEDS: midazolam 100mg in NS 100ml 100 ML IV PRN ×2 (16:46→22:02)
[2019-09-06] MEDS ORDERED: albumin (Human) 5% 250ml 250 ML IV STA (19:47)
[2019-09-06] MEDS ORDERED: albumin (Human) 5% 250ml 250 ML IV ONE (19:53)
[2019-09-07] VITALS (24 sets, daily range): BP systolic 101–145; BP diastolic 55–85
[2019-09-07] MEDS: mineral oil/petrolatum ophthal oint EACHEYE SCH ×4 (02:54→20:07)
[2019-09-07 03:20] LABS: BASOPHILS # (AUTO) 0.1 X10'3 (0-0.2); BASOPHILS % (AUTO) 0.5 % (0-1); EOSINOPHILS # (AUTO) 0.3 X10'3 (0-0.9); EOSINOPHILS % (AUTO) 2.3 % (0-6); HEMATOCRIT 37.7 % (35.0-45.0); HEMOGLOBIN 12.6 g/dl (12.0-16.0); LYMPHOCYTES # (AUTO) 2.3 X10'3 (1.1-4.8); LYMPHOCYTES % (AUTO) 15.4 % (21-51); MEAN CORPUSCULAR HEMOGLOBIN 31.1 PG (27.0-31.0); MEAN CORPUSCULAR HGB CONC 33.6 g/dL (33.0-36.5); MEAN CORPUSCULAR VOLUME 92.6 FL (78-98); MEAN PLATELET VOLUME 9.4 FL (7.4-10.4); MONOCYTES # (AUTO) 0.9 X10'3 (0-0.9); MONOCYTES % (AUTO) 6.4 % (2-12); NEUTROPHILS % (AUTO) 75.4 % (42-75); PLATELET COUNT 356 X10'3 (140-440); RED BLOOD COUNT 4.07 X10'6 (4.20-5.60); RED CELL DISTRIBUTION WIDTH 13.8 % (11.5-14.5); WHITE BLOOD COUNT 14.6 X10'3 (4.5-11.0)
[2019-09-07 03:43] LABS: ALANINE AMINOTRANSFERASE 38 U/L (12-78); ALBUMIN 1.8 G/DL (3.4-5.0); ALBUMIN/GLOBULIN RATIO 0.5 (1.1-1.5); ALKALINE PHOSPHATASE 60 IU/L (46-116); ANION GAP 8 (8-16); ASPARTATE AMINO TRANSFERASE 108 U/L (10-37); BILIRUBIN,TOTAL 0.3 MG/DL (0.1-1.0); BLOOD UREA NITROGEN 17 MG/DL (7-18); BUN/CREATININE RATIO 24.6 (6.6-38.0); CALCIUM 7.4 MG/DL (8.5-10.1); CHLORIDE 103 MMOL/L (99-107); CREATININE 0.69 MG/DL (0.40-0.90); GLUCOSE 154 MG/DL (70-104); MAGNESIUM 1.8 MG/DL (1.5-2.4); POTASSIUM 3.7 MMOL/L (3.5-5.1); SODIUM 141 MMOL/L (135-145); TOTAL CARBON DIOXIDE 30.1 MMOL/L (24-32); TOTAL PROTEIN 5.5 G/DL (6.4-8.2); eGFR > 90 ML/MIN
[2019-09-07 04:16] LABS: ABG BASE EXCESS 1.8 mmol/L (-2.0-3.0); ABG HCO3 27.4 mmol/L (22.0-26.0); ABG OXYGEN SATURATION 95.2 % (95-98); ABG PCO2 (T) 46.6 mmHg (35.0-45.0); ABG PH (T) 7.387 (7.350-7.450); ABG PO2 (T) 73.9 mmHg (83-108); ALLEN'S TEST Positive; FCOHb 0.5 % (0.5-1.5); FMetHb 0.1 % (0.3-1.12); FO2Hb 94.6 % (94-100); MINUTE VOLUME 8 L/min; PATIENT TEMPERATURE 36.8; PEEP 5 cm H2O; RESPIRATORY RATE 16 b/min; RESPIRATORY RATE (OBSERVED) 16 b/min; TOTAL HEMOGLOBIN 14.1 G/dl (12.0-16.0)
[2019-09-07] MEDS: midazolam 100mg in NS 100ml 100 ML IV PRN ×2 (05:06→21:04)
[2019-09-07] MEDS: FENTANYL-0.9 % NACL/PF 100 ML IV PRN ×3 (05:06→23:12)
--- NOTE | 2019-09-07 06:30 | NUR ---
Report received from off going RN. Significant swelling noted on L neck and +4 edema noted throughout face. Firmness noted from midline anterior neck to L neck to midline posterior neck. MD Gomez made aware and noted no significant changes. Unable to open eyes d/t swelling on face. L lung with changes on xray and brought to attention of both MD Gomez and Alexis. Per MD Espinoza to increase PEEP to 10. RT made aware and changes made by RT. Wound vac with good seal and no new drainage. Hgb decreased from 15.6 to 12.6 MD Espinoza aware. Family updated and made aware. Will continue to monitor closely.
[2019-09-07] MEDS: nystatin 15 GM powder TP SCH ×2 (07:23→20:06)
[2019-09-07] MEDS: famotidine/PF 10 mg/ml inj IV SCH ×2 (07:24→20:06)
[2019-09-07] MEDS: CLINDAMYCIN/D5W 900mg/50ml 50 ML IV SCH ×4 (07:24→23:48)
[2019-09-07] MEDS: piperacillin/tazo 4.5gm/100ml 100 ML IV SCH ×4 (07:24→23:48)
[2019-09-07] MEDS: lactobacillus rhamnosus 10,000 MMU CELLS/CAPSULE PO SCH ×2 (07:24→20:06)
[2019-09-07] MEDS: heparin, porcine 5000 units/ml vial SQ SCH ×2 (07:24→20:06)
[2019-09-07] MEDS: furosemide 40mg/4ml inj IV SCH ×2 (07:24→20:06)
[2019-09-07] MEDS: Dakins solution (1/4 strength) 473ml solution TP SCH ×2 (08:00→20:06)
[2019-09-07] MEDS: dexmedetomidin/NS 400mcg/100ml 100 ML IV SCH (09:09)
[2019-09-07] MEDS: ipratropium/albuterol 3ml nebule NEB SCH ×4 (10:37→23:12)
--- NOTE | 2019-09-07 16:56 | NUR ---
Alexis to bedside and visualized swelling. Airway stable sating 96% on FiO2 40% PEEP 10. Will continue to monitor swelling and airway management.
--- NOTE | 2019-09-07 17:28 | NUR ---
Boyfriend verbalized that pt has missed last two periods. Brought to attention of charge account authorizer and looked through OSH paperwork. Unable to locate test in OSH records. Will collect urine sample and send to lab.
[2019-09-07 17:53] LABS: URINE HCG NEGATIVE (NEG)
--- NOTE | 2019-09-07 18:30 | NUR ---
Patient in room ICU 2045. I have received report from Refugio HANDLEY and had the opportunity to ask questions and assume patient care.
[2019-09-08] VITALS (23 sets, daily range): BP systolic 12–157; BP diastolic 61–103
[2019-09-08] MEDS: mineral oil/petrolatum ophthal oint EACHEYE SCH ×4 (02:00→20:10)
[2019-09-08] MEDS: ipratropium/albuterol 3ml nebule NEB SCH ×6 (02:59→23:17)
[2019-09-08 03:00] LABS: ABG BASE EXCESS 6.7 mmol/L (-2.0-3.0); ABG HCO3 32.4 mmol/L (22.0-26.0); ABG OXYGEN SATURATION 89.6 % (95-98); ABG PCO2 (T) 51.1 mmHg (35.0-45.0); ABG PH (T) 7.422 (7.350-7.450); ABG PO2 (T) 57.6 mmHg (83-108); ALLEN'S TEST Positive; FCOHb 0.5 % (0.5-1.5); FMetHb 0.1 % (0.3-1.12); FO2Hb 89.1 % (94-100); MINUTE VOLUME 9 L/min; PATIENT TEMPERATURE 37.4; PEEP 10 cm H2O; RESPIRATORY RATE 16 b/min; RESPIRATORY RATE (OBSERVED) 16 b/min; TOTAL HEMOGLOBIN 14.6 G/dl (12.0-16.0)
[2019-09-08 03:20] LABS: BASOPHILS # (AUTO) 0.1 X10'3 (0-0.2); BASOPHILS % (AUTO) 0.5 % (0-1); EOSINOPHILS # (AUTO) 0.4 X10'3 (0-0.9); EOSINOPHILS % (AUTO) 2.9 % (0-6); HEMATOCRIT 40.8 % (35.0-45.0); HEMOGLOBIN 13.6 g/dl (12.0-16.0); LYMPHOCYTES % (AUTO) 14.7 % (21-51); MEAN CORPUSCULAR HEMOGLOBIN 30.8 PG (27.0-31.0); MEAN CORPUSCULAR HGB CONC 33.4 g/dL (33.0-36.5); MEAN CORPUSCULAR VOLUME 92.1 FL (78-98); MEAN PLATELET VOLUME 9.5 FL (7.4-10.4); MONOCYTES # (AUTO) 1.2 X10'3 (0-0.9); MONOCYTES % (AUTO) 8.3 % (2-12); NEUTROPHILS # (AUTO) 10.1 X10'3 (1.8-7.7); NEUTROPHILS % (AUTO) 73.6 % (42-75); PLATELET COUNT 399 X10'3 (140-440); RED BLOOD COUNT 4.43 X10'6 (4.20-5.60); RED CELL DISTRIBUTION WIDTH 14.1 % (11.5-14.5); WHITE BLOOD COUNT 13.8 X10'3 (4.5-11.0)
[2019-09-08 03:24] LABS: ALANINE AMINOTRANSFERASE 37 U/L (12-78); ALBUMIN 1.8 G/DL (3.4-5.0); ALBUMIN/GLOBULIN RATIO 0.4 (1.1-1.5); ALKALINE PHOSPHATASE 71 IU/L (46-116); ANION GAP 3 (8-16); ASPARTATE AMINO TRANSFERASE 77 U/L (10-37); BILIRUBIN,TOTAL 0.3 MG/DL (0.1-1.0); BLOOD UREA NITROGEN 17 MG/DL (7-18); BUN/CREATININE RATIO 31.5 (6.6-38.0); CHLORIDE 104 MMOL/L (99-107); CREATININE 0.54 MG/DL (0.40-0.90); GLUCOSE 143 MG/DL (70-104); POTASSIUM 3.5 MMOL/L (3.5-5.1); SODIUM 142 MMOL/L (135-145); eGFR > 90 ML/MIN
--- NOTE | 2019-09-08 06:30 | NUR ---
Received report from off going RN. Swelling appears slightly worse than yesterday. janitorial account manager called to bedside to visualize. Airway stable pt sating 97% EtCo2 44. PaO2 57 RT and clarifying plant operator notified. FIo2 inceased to 50 metaneb performed by RT. Facial swelling frimness marked. Intedry applied to neck folds. Will continue to monitor closely.
[2019-09-08] MEDS: Dakins solution (1/4 strength) 473ml solution TP SCH ×2 (06:56→20:00)
[2019-09-08] MEDS: lactobacillus rhamnosus 10,000 MMU CELLS/CAPSULE PO SCH ×2 (07:07→19:40)
[2019-09-08] MEDS: piperacillin/tazo 4.5gm/100ml 100 ML IV SCH ×2 (07:07→16:08)
[2019-09-08] MEDS: famotidine/PF 10 mg/ml inj IV SCH ×2 (07:07→19:40)
[2019-09-08] MEDS: furosemide 40mg/4ml inj IV SCH (07:07)
[2019-09-08] MEDS: heparin, porcine 5000 units/ml vial SQ SCH ×2 (07:07→19:40)
[2019-09-08] MEDS: CLINDAMYCIN/D5W 900mg/50ml 50 ML IV SCH ×2 (07:07→15:36)
[2019-09-08] MEDS: nystatin 15 GM powder TP SCH ×2 (07:08→19:41)
[2019-09-08] MEDS: FENTANYL-0.9 % NACL/PF 100 ML IV PRN ×3 (08:29→20:35)
[2019-09-08] MEDS: midazolam 100mg in NS 100ml 100 ML IV PRN ×2 (08:29→21:42)
--- NOTE | 2019-09-08 10:09 | NUR ---
MD Mayorga brought to bedside. Lasix gtt and metolazone ordered. Doppler of Subclavian and IJ pending. CT venogram of juglar, SVC, Subclavian pending. ABG ordered. Will continue to monitor.
[2019-09-08] MEDS ORDERED: furosemide inj 100 ML IV SCH (10:15)
[2019-09-08] MEDS ORDERED: iohexol 350MG/ML 100ml bottle IV ONE (11:21)
--- NOTE | 2019-09-08 12:42 | NUR ---
Reassessment: Pt intubated and sedated, s/p wound debridement and wound vac placement d/t necrotizing fasciitis of neck after tattoo. Tube feedings are back to goal rate with vital high protein at 105 ml/hr, meeting nutrition needs. LB 09/06. Rec: 1. continue tube feeding via OG tube with Vital High Protein at 105ml/hr goal will provide: 2520 cals, 2520 ml volume, 221 g protein, and 2117 ml water. 2. Additional water flush 200 ml q 4 hours 3. prealbumin q /; daily wts 4. routine bowel care 5. May benefit from multivitamin to support wound healing 6. when extubated advance diet as medically indicated to heart healthy 7. high protein ed once stable s/p extubation Addendum: 09/08/19 at [address] Amended: Links added.
[2019-09-08] MEDS: metolazone 2.5mg tablet PO SCH ×2 (13:21→21:00)
--- NOTE | 2019-09-08 14:00 | NUR ---
Pt about net even this shift. Per MD Mayorga at bedside. Tube feedings stopped. Pharmacy called to double check midazolam and fentanyl concentration. Dietitian paged about stopped TF. BG 161 on 1400 check. Will continue to monitor closely.
[2019-09-08 14:15] LABS: ABG BASE EXCESS 8.2 mmol/L (-2.0-3.0); ABG HCO3 32.2 mmol/L (22.0-26.0); ABG OXYGEN SATURATION 96.2 % (95-98); ABG PH (T) 7.503 (7.350-7.450); ABG PO2 (T) 76.7 mmHg (83-108); ALLEN'S TEST Positive; FCOHb 0.6 % (0.5-1.5); FMetHb 0.3 % (0.3-1.12); FO2Hb 95.3 % (94-100); PEEP 5 cm H2O; RESPIRATORY RATE 14 b/min; RESPIRATORY RATE (OBSERVED) 14 b/min; TOTAL HEMOGLOBIN 15.3 G/dl (12.0-16.0)
[2019-09-08] MEDS ORDERED: Neutra Phos packet PO PRN (16:20)
[2019-09-08] MEDS ORDERED: sodium phosphate inj. 30 MMOL in dextrose 5%-water 250 ML IV PRN (16:20)
[2019-09-08] MEDS ORDERED: magnesium Cl slow-release 64mg tablet PO PRN (16:20)
[2019-09-08] MEDS ORDERED: potassium Cl 20 mEq SR tablet PO PRN ×2 (16:20)
[2019-09-08] MEDS ORDERED: magnesium 2GM in 50ml NS 50 ML IV PRN (16:20)
[2019-09-08] MEDS ORDERED: magnesium 4gm in 100ml NS 100 ML IV PRN (16:20)
[2019-09-08] MEDS ORDERED: sodium phosphate inj. 15 MMOL in dextrose 5%-water 150 ML IV PRN (16:20)
--- NOTE | 2019-09-08 17:34 | NUR ---
Pt with signficant UOP, total -5L net negative. Pt tachy in the 120s. Per MD Guan decrease lasix gtt to 1.5 and hold PM metolazone. PT also with desaturations to mid 80s on 50% FiO2. Rt notified and increased FioO2 to 100%. MD guan notified and ABG pending. Will follow up.
[2019-09-08 18:11] LABS: ABG BASE EXCESS 13.5 mmol/L (-2.0-3.0); ABG HCO3 37.9 mmol/L (22.0-26.0); ABG OXYGEN SATURATION 94.8 % (95-98); ABG PCO2 (T) 45.3 mmHg (35.0-45.0); ABG PO2 (T) 66.9 mmHg (83-108); ALLEN'S TEST Positive; FCOHb 0.4 % (0.5-1.5); FMetHb 0.3 % (0.3-1.12); FO2Hb 94.1 % (94-100); PEEP 5 cm H2O; RESPIRATORY RATE 16 b/min; RESPIRATORY RATE (OBSERVED) 16 b/min; TOTAL HEMOGLOBIN 15.2 G/dl (12.0-16.0)
--- NOTE | 2019-09-08 18:50 | NUR ---
pt UOP was up to 10 liters since start of lasix drip at 1400. BMP sent, and lasix turned off until lab work resulted. The potassium was 2.5. ROLAND Luciano was notified and an order was given to give 40meq of PO potassium and 40meq of IV potassium.
--- NOTE | 2019-09-08 19:16 | NUR ---
Pt with continued UOP total of 7L since 1400. Net negative 6L. MD Guan notified. Pt sats remained in low 90s on 100% FiO2. ABG shows metabolic alkalosis 7.54, HCO 37. MD guan notified and aware. Stat Xray ordered. Pt remains tachycardic in the 120s. Diamox and spironolactone ordered per . Pending BMP prior to giving more diuretics. Will continue to monitor.
[2019-09-08 19:59] LABS: ANION GAP 7 (8-16); BLOOD UREA NITROGEN 16 MG/DL (7-18); BUN/CREATININE RATIO 19.3 (6.6-38.0); CALCIUM 8.3 MG/DL (8.5-10.1); CHLORIDE 99 MMOL/L (99-107); CREATININE 0.83 MG/DL (0.40-0.90); GLUCOSE 160 MG/DL (70-104); MAGNESIUM 1.7 MG/DL (1.5-2.4); PHOSPHORUS 3.5 MG/DL (2.3-4.5); SODIUM 145 MMOL/L (135-145); TOTAL CARBON DIOXIDE 38.7 MMOL/L (24-32); eGFR 77 ML/MIN
[2019-09-08 20:02] LABS: POTASSIUM 2.5 MMOL/L (3.5-5.1)
[2019-09-08] MEDS ORDERED: potassium Cl 20 mEq/100mL bag IV ONE (20:25)
[2019-09-08] MEDS ORDERED: potassium Cl 20mEq/100mL bag 100 ML IV ONE (20:25)
[2019-09-08] MEDS ORDERED: POTASSIUM BICARB 20meq eff tab 20 MEQ TABLET.EFF PO PRN (20:39)
[2019-09-09] VITALS (18 sets, daily range): BP systolic 106–138; BP diastolic 57–83
[2019-09-09] MEDS: CLINDAMYCIN/D5W 900mg/50ml 50 ML IV SCH ×3 (00:01→15:41)
[2019-09-09] MEDS: piperacillin/tazo 4.5gm/100ml 100 ML IV SCH ×2 (01:08→07:05)
[2019-09-09] MEDS: K, MAG and/or Phos replacement - Verify level? MC SCH ×2 (02:00→08:00)
[2019-09-09] MEDS: FENTANYL-0.9 % NACL/PF 100 ML IV PRN ×3 (02:11→12:14)
[2019-09-09] MEDS: mineral oil/petrolatum ophthal oint EACHEYE SCH ×3 (02:43→15:41)
[2019-09-09 02:50] LABS: ABG BASE EXCESS 15.3 mmol/L (-2.0-3.0); ABG HCO3 41.9 mmol/L (22.0-26.0); ABG OXYGEN SATURATION 93.9 % (95-98); ABG PCO2 (T) 61.7 mmHg (35.0-45.0); ABG PH (T) 7.454 (7.350-7.450); ABG PO2 (T) 74.6 mmHg (83-108); ALLEN'S TEST Positive; FCOHb 0.1 % (0.5-1.5); FMetHb 0.1 % (0.3-1.12); FO2Hb 93.7 % (94-100); MINUTE VOLUME 8 L/min; PEEP 5 cm H2O; RESPIRATORY RATE 12 b/min; RESPIRATORY RATE (OBSERVED) 14 b/min; TOTAL HEMOGLOBIN 14.2 G/dl (12.0-16.0)
[2019-09-09] MEDS: ipratropium/albuterol 3ml nebule NEB SCH ×4 (02:52→14:31)
[2019-09-09 03:44] LABS: BASOPHILS # (AUTO) 0.1 X10'3 (0-0.2); BASOPHILS % (AUTO) 0.7 % (0-1); EOSINOPHILS # (AUTO) 0.2 X10'3 (0-0.9); EOSINOPHILS % (AUTO) 1.3 % (0-6); HEMATOCRIT 38.8 % (35.0-45.0); HEMOGLOBIN 13.3 g/dl (12.0-16.0); LYMPHOCYTES # (AUTO) 3.1 X10'3 (1.1-4.8); LYMPHOCYTES % (AUTO) 21.8 % (21-51); MEAN CORPUSCULAR HEMOGLOBIN 31.1 PG (27.0-31.0); MEAN CORPUSCULAR HGB CONC 34.2 g/dL (33.0-36.5); MEAN PLATELET VOLUME 9.7 FL (7.4-10.4); MONOCYTES # (AUTO) 1.3 X10'3 (0-0.9); MONOCYTES % (AUTO) 9.4 % (2-12); NEUTROPHILS # (AUTO) 9.4 X10'3 (1.8-7.7); NEUTROPHILS % (AUTO) 66.8 % (42-75); PLATELET COUNT 440 X10'3 (140-440); RED BLOOD COUNT 4.26 X10'6 (4.20-5.60); RED CELL DISTRIBUTION WIDTH 14.1 % (11.5-14.5); WHITE BLOOD COUNT 14.1 X10'3 (4.5-11.0)
[2019-09-09 03:51] LABS: ALANINE AMINOTRANSFERASE 42 U/L (12-78); ALBUMIN 1.9 G/DL (3.4-5.0); ALBUMIN/GLOBULIN RATIO 0.4 (1.1-1.5); ALKALINE PHOSPHATASE 69 IU/L (46-116); ANION GAP 4 (8-16); ASPARTATE AMINO TRANSFERASE 69 U/L (10-37); BILIRUBIN,TOTAL 0.5 MG/DL (0.1-1.0); BLOOD UREA NITROGEN 16 MG/DL (7-18); BUN/CREATININE RATIO 20.3 (6.6-38.0); CALCIUM 8.5 MG/DL (8.5-10.1); CHLORIDE 100 MMOL/L (99-107); CREATININE 0.79 MG/DL (0.40-0.90); GLUCOSE 119 MG/DL (70-104); MAGNESIUM 1.9 MG/DL (1.5-2.4); PHOSPHORUS 3.6 MG/DL (2.3-4.5); POTASSIUM 3.1 MMOL/L (3.5-5.1); SODIUM 145 MMOL/L (135-145); TOTAL PROTEIN 6.4 G/DL (6.4-8.2); eGFR 81 ML/MIN
[2019-09-09 03:53] LABS: TOTAL CARBON DIOXIDE 41.3 MMOL/L (24-32)
[2019-09-09] MEDS: midazolam 100mg in NS 100ml 100 ML IV PRN ×2 (06:07→12:21)
[2019-09-09] MEDS: heparin, porcine 5000 units/ml vial SQ SCH (07:05)
[2019-09-09] MEDS: lactobacillus rhamnosus 10,000 MMU CELLS/CAPSULE PO SCH (07:05)
[2019-09-09] MEDS: famotidine/PF 10 mg/ml inj IV SCH (07:05)
[2019-09-09] MEDS: nystatin 15 GM powder TP SCH (07:20)
[2019-09-09] MEDS: Dakins solution (1/4 strength) 473ml solution TP SCH (07:34)
[2019-09-09 07:56] LABS: ALBUMIN 1.9 G/DL (3.4-5.0); ANION GAP 4 (8-16); BLOOD UREA NITROGEN 15 MG/DL (7-18); BUN/CREATININE RATIO 19.5 (6.6-38.0); CALCIUM 8.6 MG/DL (8.5-10.1); CHLORIDE 98 MMOL/L (99-107); CREATININE 0.77 MG/DL (0.40-0.90); GLUCOSE 122 MG/DL (70-104); MAGNESIUM 1.8 MG/DL (1.5-2.4); PHOSPHORUS 3.1 MG/DL (2.3-4.5); POTASSIUM 3.2 MMOL/L (3.5-5.1); SODIUM 145 MMOL/L (135-145); eGFR 84 ML/MIN
[2019-09-09 08:00] LABS: TOTAL CARBON DIOXIDE 43.2 MMOL/L (24-32)
[2019-09-09] MEDS: metolazone 2.5mg tablet PO SCH ×2 (08:00→13:00)
[2019-09-09] MEDS: spironolactone 25 MG tablet NG SCH ×3 (08:00→15:51)
[2019-09-09] MEDS: acetaZOLAMIDE IV 500mg inj IV SCH ×3 (08:00→15:51)
[2019-09-09] MEDS ORDERED: furosemide inj 100 ML IV SCH (10:15)
[2019-09-09] MEDS ORDERED: potassium CL 10mEq/100ml bag 100 ML IV PRN (10:15)
--- NOTE | 2019-09-09 10:24 | NUR ---
MD Mayorga to bedside. Brisk UOP this shift with a total of 2L of output. K 3.2. Per MD 60 mEq of K to given and pause lasix gtt and hold AM diuretic meds. Pt remains on 100% FiO2 satting only mid 90s. RT notified. MD Bonilla to bedside for stable +4 pitting edema noted on face. Visualized and marked by MD. Will continue to monitor.
[2019-09-09] MEDS: potassium Cl 20mEq/100mL bag 100 ML IV PRN ×4 (10:32→15:41)
[2019-09-09 15:30] LABS: ALBUMIN 1.9 G/DL (3.4-5.0); ANION GAP 4 (8-16); BLOOD UREA NITROGEN 15 MG/DL (7-18); CALCIUM 8.4 MG/DL (8.5-10.1); CHLORIDE 100 MMOL/L (99-107); CREATININE 0.75 MG/DL (0.40-0.90); GLUCOSE 117 MG/DL (70-104); MAGNESIUM 1.6 MG/DL (1.5-2.4); PHOSPHORUS 2.5 MG/DL (2.3-4.5); SODIUM 143 MMOL/L (135-145); TOTAL CARBON DIOXIDE 39.3 MMOL/L (24-32); eGFR 86 ML/MIN
[2019-09-09 15:32] LABS: POTASSIUM 2.9 MMOL/L (3.5-5.1)
--- NOTE | 2019-09-09 15:49 | NUR ---
Handoff called to ENDER Mohamud at [facility]. All questions anwsered. Signficance of swelling and edema noted in report. Also noted t remains on 100% FiO2 while satting only low 90s. Lasix gtt and PO diuretics current paused. Total UOP of about 11L reported to RN. 1400 BMP drawn and sent shows K of 2.9. K to be supplemented prior to transfer. Family called and made aware of transfer. Will contiunue to monitor.
--- NOTE | 2019-09-09 17:37 | NUR ---
Pt. transferred to [facility] ICU [place] via [facility] ground and 2 RNs due to pt's acuity and difficult airway status in stable condition. RN Oneida notified of K+ 2.9 and pt. received one bag of 20 meq KCL prior to transfer.
--- NOTE | 2019-09-09 17:45 | NUR ---
[employer] wound vac kept here when pt. transferred to [facility]. Fentanyl and Versed wasted with Michel HANDLEY as a witness.
[2019-09-10 15:08] LABS: HBSAG SCREEN Negative (Negative); HEPATITIS C ANTIBODY 0.1 s/co ratio (0.0-0.9)
== END 2019-09-09 17:37 | disposition short-term general hospital (02) | DRG 720 ==
LOC: ER 21:44 → ED HOLD 22:08 → SUR 3N 22:30 → ICU 2S 22:51
PROVIDERS: ADMIT Internal Medicine; ATTEND Internal Medicine
PROC: 5A1955Z Respiratory Ventilation, Greater than 96 Consecutive Hours (ICD-10-PCS; 2019-09-01)
PROC: 0BH17EZ Insertion of Endotracheal Airway into Trachea, Via Natural or Artificial Opening (ICD-10-PCS; 2019-09-01)
PROC: 0JB50ZZ Excision of Left Neck Subcutaneous Tissue and Fascia, Open Approach (ICD-10-PCS; principal; 2019-09-01 22:04)
PROC: 0JB50ZZ Excision of Left Neck Subcutaneous Tissue and Fascia, Open Approach (ICD-10-PCS; 2019-09-05)
PROC: 05HY33Z Insertion of Infusion Device into Upper Vein, Percutaneous Approach (ICD-10-PCS; 2019-09-09)
DX: A41.9 Sepsis, unspecified organism (principal); J96.00 Acute respiratory failure, unspecified whether with hypoxia or hypercapnia; M72.6 Necrotizing fasciitis; L03.221 Cellulitis of neck; E11.9 Type 2 diabetes mellitus without complications; E66.01 Morbid (severe) obesity due to excess calories; E87.6 Hypokalemia; L02.11 Cutaneous abscess of neck; G47.33 Obstructive sleep apnea (adult) (pediatric); Z68.43 Body mass index [BMI] 50.0-59.9, adult
CPT/HCPCS: 36415; 36573; 36600; 70498; 71045; 76937; 80053; 80069; 80202; 81001; 81025; 82803; 82948; 83036; 83605; 83735; 84100; 84134; 84145; 84478; 84702; 85018; 85025; 85610; 85730; 86803; 86885; 86900; 86901; 87070; 87075; 87077; 87081; 87186; 87340; 93306; 93971; 94002; 94003; 94640; 94760; 99291; A4618; A6253; A6258; A6446; A6550; A7000; C1758; G0378; J0330; J0690; J1100; J1120; J1644; J1940; J2250; J2270; J2543; J2704; J3010; J3370; J3480; J3490; J7030; J7040; J7120; P9045; Q9967